=== PATIENT | male | born 1955 | race Caucasian/White ===

== ENCOUNTER 2020-10-21 13:23 | Inpatient (IN) | payer OTHER ==
[~2020-10-21] VITALS: Ht 193 cm; Wt 95.0 kg
[2020-10-21] MEDS ORDERED: normal saline 1000ML IV soln IVB ONE (13:55)
[2020-10-21 13:59] LABS: BASOPHILS % (AUTO) 0.2 % (0-1); EOSINOPHILS % (AUTO) 0.1 % (0-6); LYMPHOCYTES # (AUTO) 1.2 X10'3 (1.1-4.8); LYMPHOCYTES % (AUTO) 6.8 % (21-51); MEAN PLATELET VOLUME 9.8 FL (7.4-10.4); MONOCYTES # (AUTO) 0.4 X10'3 (0-0.9); MONOCYTES % (AUTO) 2.4 % (2-12); NEUTROPHILS # (AUTO) 15.5 X10'3 (1.8-7.7); NEUTROPHILS % (AUTO) 90.5 % (42-75); PLATELET COUNT 402 X10'3 (140-440); RED BLOOD COUNT 4.05 X10'6 (4.70-6.10); RED CELL DISTRIBUTION WIDTH 14.9 % (11.5-14.5); WHITE BLOOD COUNT 17.1 X10'3 (4.5-11.0)
[2020-10-21 14:14] LABS: ALANINE AMINOTRANSFERASE 24 U/L (12-78); ALBUMIN 3.9 G/DL (3.4-5.0); ALKALINE PHOSPHATASE 176 IU/L (46-116); ANION GAP 33 (8-16); ASPARTATE AMINO TRANSFERASE 9 U/L (10-37); BILIRUBIN,TOTAL 0.6 MG/DL (0.1-1.0); BLOOD UREA NITROGEN 44 MG/DL (7-18); BUN/CREATININE RATIO 16.7 (5.4-32.0); CALCIUM 9.7 MG/DL (8.5-10.1); CHLORIDE 96 MMOL/L (99-107); CREATININE 2.63 MG/DL (0.60-1.10); MAGNESIUM 2.6 MG/DL (1.5-2.4); SODIUM 138 MMOL/L (135-145); TOTAL PROTEIN 7.9 G/DL (6.4-8.2); eGFR 25 ML/MIN
[2020-10-21 14:18] LABS: HEMATOCRIT 37.8 % (42.0-52.0)
[2020-10-21 14:19] LABS: MEAN CORPUSCULAR VOLUME 94.5 FL (78-98)
[2020-10-21 14:20] LABS: MEAN CORPUSCULAR HEMOGLOBIN 32.7 PG (27.0-31.0); MEAN CORPUSCULAR HGB CONC 34.6 g/dL (33.0-36.5)
[2020-10-21] MEDS ORDERED: insulin regular, human 10 units/0.1 ml syringe IV ONE (14:20)
[2020-10-21] MEDS ORDERED: ondansetron/PF 4mg/2ml inj IV ONE (14:20)
[2020-10-21 14:21] LABS: HEMOGLOBIN 13.1 g/dl (14.0-17.9)
[2020-10-21 14:35] LABS: TOTAL CARBON DIOXIDE 8.6 MMOL/L (24-32)
[2020-10-21 14:36] LABS: ABG BASE EXCESS -23.6 mmol/L (-2.0-2.0); ABG HCO3 4.5 mmol/L (22.0-26.0); ABG OXYGEN SATURATION 97.3 % (94-97); ABG PCO2 (T) 15.5 mmHg (35.0-48.0); ALLEN'S TEST POSITIVE; FMetHb 0.1 % (0.0-1.5); FO2Hb 97.2 % (94-97); TOTAL HEMOGLOBIN 12.3 G/dl (14.0-18.0)
[2020-10-21] MEDS ORDERED: insulin regular, human U-100 3ml vial - multi-dose IV ONE (14:40)
[2020-10-21] MEDS ORDERED: Insulin Reg/NS 100units/100mL 100 ML IV SCH ×2 (14:45→15:25)
[2020-10-21 14:53] LABS: PHOSPHORUS 9.7 MG/DL (2.3-4.5)
[2020-10-21 14:55] LABS: GLUCOSE 846 MG/DL (70-104)
[2020-10-21] MEDS: normal saline 1000ml 1,000 ML IV SCH ×5 (15:04→22:45)
[2020-10-21] MEDS ORDERED: ASPI-611 PO (15:05)
[2020-10-21] MEDS ORDERED: METF-436 PO (15:05)
[2020-10-21] MEDS ORDERED: ZANTAC PO (15:24)
[2020-10-21] MEDS ORDERED: LEVO125T PO (15:24)
[2020-10-21] MEDS ORDERED: normal saline 1000ml 1,000 ML IV SCH (15:25)
[2020-10-21] MEDS ORDERED: insulin regular, human U-100 3ml vial - multi-dose IV PRN (15:25)
[2020-10-21] MEDS ORDERED: potassium CL 20mEq in D5-1/2NS 1,000 ML IV PRN (15:25)
[2020-10-21] MEDS ORDERED: acetaminophen 325mg tablet PO PRN ×2 (15:25)
[2020-10-21] MEDS ORDERED: potassium Cl 40MEQ/1/2NS 520ml 520 ML IV PRN ×2 (15:25)
[2020-10-21] MEDS ORDERED: potassium Cl 20 mEq SR tablet PO PRN ×2 (15:25)
[2020-10-21] MEDS ORDERED: Neutra Phos packet PO PRN (15:25)
[2020-10-21] MEDS ORDERED: sodium bicarbonate (8.4%) inj. 100 MEQ in dextrose 5% water 500ml 500 ML IV PRN (15:25)
[2020-10-21] MEDS ORDERED: mag hydrox/Alum hydrox/simeth 30ml oral suspension PO PRN (15:25)
[2020-10-21] MEDS ORDERED: sodium phosphate inj. 30 MMOL in dextrose 5%-water 250 ML IV PRN (15:25)
[2020-10-21] MEDS ORDERED: sodium bicarbonate (8.4%) inj. 50 MEQ in dextrose 5% water 500ml 250 ML IV PRN (15:25)
[2020-10-21] MEDS ORDERED: ondansetron/PF 4mg/2ml inj IV PRN (15:25)
[2020-10-21] MEDS ORDERED: HYDROcodone/acetaminophen 5mg/325mg tablet PO PRN (15:25)
[2020-10-21] MEDS ORDERED: morphine 2 MG/ML inj. syringe IV PRN ×2 (15:25)
[2020-10-21] MEDS ORDERED: sodium phosphate inj. 15 MMOL in dextrose 5%-water 250 ML IV PRN (15:25)
[2020-10-21] MEDS ORDERED: magnesium hydroxide 30ml (MOM) UD suspension PO PRN (15:25)
[2020-10-21] MEDS ORDERED: HYDROcodone/acetaminophen 10/325mg tab PO PRN (15:25)
[2020-10-21] MEDS ORDERED: VENL150C2 PO (15:57)
[2020-10-21] MEDS ORDERED: DIVA500T9 PO (15:57)
[2020-10-21] MEDS ORDERED: PANT-47 PO (15:57)
[2020-10-21] MEDS ORDERED: SIMV40TA PO (15:57)
[2020-10-21] MEDS ORDERED: MULT-1085 PO (15:57)
[2020-10-21] MEDS ORDERED: LEVO50TA PO (15:58)
--- NOTE | 2020-10-21 16:00 | NUR ---
bg >600 meter reads hi
[2020-10-21 16:17] LABS: ALBUMIN 3.7 G/DL (3.4-5.0); ANION GAP 35 (8-16); BLOOD UREA NITROGEN 40 MG/DL (7-18); BUN/CREATININE RATIO 15.7 (5.4-32.0); CALCIUM 9.2 MG/DL (8.5-10.1); CHLORIDE 97 MMOL/L (99-107); CREATININE 2.54 MG/DL (0.60-1.10); SODIUM 140 MMOL/L (135-145); eGFR 26 ML/MIN
[2020-10-21 16:19] LABS: CLARITY,URINE CLEAR (Clear); COLOR,URINE YELLOW (Yellow); GLUCOSE, URINE >=1000 mg/dl (Neg); KETONES,URINE >=80 mg/dl (Neg); LEUKOCYTE ESTERASE ,URINE NEGATIVE (Neg); NITRITES, URINE NEGATIVE (Neg); OCCULT BLOOD,URINE TRACE-INTACT (Neg); PH,URINE 5.5 (4.8-8.0); PROTEIN,URINE TRACE mg/dl (Neg); UROBILINOGEN,URINE 0.2 E.U/dL (0.2-1.0)
[2020-10-21 16:20] LABS: UA COLLECTION TYPE URINAL
[2020-10-21 16:23] LABS: GLUCOSE 744 MG/DL (70-104); POTASSIUM 6.4 MMOL/L (3.5-5.1); TOTAL CARBON DIOXIDE 8.1 MMOL/L (24-32)
[2020-10-21 16:40] LABS: BACTERIA,URINE NONE SEEN /HPF (Neg); HYALINE CASTS 0-3 /LPF (NEGATIVE); RBC,URINE 0-2 /HPF (0-2); SQUAMOUS EPITHELIAL CELL,UR FEW /LPF (FEW); WBC,URINE 0-4 /HPF (0-4)
[2020-10-21 17:54] LABS: ALBUMIN 3.3 G/DL (3.4-5.0); ANION GAP 30 (8-16); BLOOD UREA NITROGEN 38 MG/DL (7-18); BUN/CREATININE RATIO 16.4 (5.4-32.0); CALCIUM 8.4 MG/DL (8.5-10.1); CHLORIDE 107 MMOL/L (99-107); CREATININE 2.32 MG/DL (0.60-1.10); POTASSIUM 4.9 MMOL/L (3.5-5.1); SODIUM 144 MMOL/L (135-145); eGFR 28 ML/MIN
[2020-10-21 17:59] LABS: GLUCOSE 558 MG/DL (70-104); TOTAL CARBON DIOXIDE 7.4 MMOL/L (24-32)
[2020-10-21 18:00] VITALS: BP 133/60
--- NOTE | 2020-10-21 18:04 | NUR ---
Pt arrived from ER/Critical lab. Critical high blood glucose at 558; CO2 at 8.1. Dr. Sahni paged "RE: Yifan Mckoy: RM 3024A. Critical lab: blood glucose 558 (down from 744); CO2 7.4 (down from 8.1) . (DKA) please advise. -Marleen #[id number]" Pt arrived from ER via gurney at 1745, accompanied from Gustavo ZARATE. Full report received from Gustavo. Pt has received total of 4L IV fluids, and has 250ml running. Pt alert and oriented, denies pain. Pt 3 person transferred to hospital bed. Blood sugar checked and is 511. pt set up in the bed, call light in hand, IVs patent and running insulin at 7Units/hr; NS at 250ml/hr. pt denies nausea. redraw of potassium now 4.9 (down from 6.4). safety education completed. pt NPO. pt on tele: sinus tachycardia. VS: 97.9;112; 14; 145/67; 100%. report to be given to oncoming nurse.
--- NOTE | 2020-10-21 18:26 | NUR ---
Problems reprioritized. Patient report given, questions answered & plan of care reviewed with Lissette ZARATE. Pt supine in bed with HOB elevated to 20 degrees. pt A&Ox4, conversing easily. no sob. IV running 205ml ns/hr and 7 units of insulin/hour.
--- NOTE | 2020-10-21 18:28 | NUR ---
[place] documentation: I have reviewed and agree with all interventions, assessments performed and documented by ELLIOT Hawley.
--- NOTE | 2020-10-21 18:28 | NUR ---
Problems reprioritized. Patient report given, questions answered & plan of care reviewed with ELLIOT Chandra. Pt laying in bed comfortably at change of shift, no signs of distress, all pt needs met at this time.
--- NOTE | 2020-10-21 18:28 | NUR ---
[place] Medication Administration: For this medication-pass time frame, all medication were reviewed, dispensed, administered and documented per hospital policy by ELLIOT Hawley.
[2020-10-21 20:00] VITALS: BP_SYST 107; BP_SYST 119; BP_SYST 131; BP_DIAS 51; BP_DIAS 55; BP_DIAS 68
[2020-10-21] MEDS: K and/or MAG REPLACEMENT MC SCH (20:00)
[2020-10-21 22:00] VITALS: BP 131/68
[2020-10-21 22:13] LABS: CHLORIDE 109 MMOL/L (99-107); GLUCOSE 410 MG/DL (70-104); POTASSIUM 5.2 MMOL/L (3.5-5.1); SODIUM 144 MMOL/L (135-145)
[2020-10-21 22:14] LABS: ALBUMIN 3.4 G/DL (3.4-5.0); ANION GAP 23 (8-16); BLOOD UREA NITROGEN 36 MG/DL (7-18); BUN/CREATININE RATIO 16.4 (5.4-32.0); CREATININE 2.19 MG/DL (0.60-1.10); PHOSPHORUS 4.4 MG/DL (2.3-4.5); eGFR 30 ML/MIN
[2020-10-21 22:16] LABS: TOTAL CARBON DIOXIDE 12.4 MMOL/L (24-32)
--- NOTE | 2020-10-21 22:32 | NUR ---
PAGER ID: [phone] MESSAGE: [id number] Yifan Mcoky: 6 hr trop 0.52, 12 hr trop already ordered. patient has MS and had a seizure 2 days ago at home, DKA slowly resolving. would you like to order anything else? Corazon ZARATE [id number]
[2020-10-21] MEDS: dextrose 5%-1/2 normal saline 1,000 ML IV SCH (23:27)
[2020-10-22] VITALS (13 sets, daily range): BP systolic 114–132; BP diastolic 46–76
[2020-10-22 00:16] LABS: ALBUMIN 3.1 G/DL (3.4-5.0); ANION GAP 17 (8-16); BLOOD UREA NITROGEN 31 MG/DL (7-18); CALCIUM 8.5 MG/DL (8.5-10.1); CHLORIDE 112 MMOL/L (99-107); CREATININE 1.94 MG/DL (0.60-1.10); GLUCOSE 233 MG/DL (70-104); PHOSPHORUS 2.8 MG/DL (2.3-4.5); POTASSIUM 4.8 MMOL/L (3.5-5.1); SODIUM 146 MMOL/L (135-145); TOTAL CARBON DIOXIDE 16.7 MMOL/L (24-32); eGFR 35 ML/MIN
--- NOTE | 2020-10-22 01:15 | NUR ---
Insulin Drip PAGER ID: [phone] MESSAGE: [id number] Yifan Mckoy: DKA patient, currently 196 blood glucose and steadily going down. Patient has insulin going at 7 ml/hour, protocol states it should be at 5ml/hr. would you like me to decrease? Corazon ZARATE 5164
[2020-10-22] MEDS: Insulin Reg/NS 100units/100mL 100 ML IV SCH ×2 (01:41→18:08)
[2020-10-22 02:52] LABS: BASOPHILS % (AUTO) 0.2 % (0-1); EOSINOPHILS % (AUTO) 0.2 % (0-6); HEMATOCRIT 29.4 % (42.0-52.0); HEMOGLOBIN 9.9 g/dl (14.0-17.9); LYMPHOCYTES # (AUTO) 2.5 X10'3 (1.1-4.8); MEAN CORPUSCULAR HEMOGLOBIN 31.9 PG (27.0-31.0); MEAN CORPUSCULAR HGB CONC 33.7 g/dL (33.0-36.5); MEAN CORPUSCULAR VOLUME 94.7 FL (78-98); MEAN PLATELET VOLUME 8.6 FL (7.4-10.4); MONOCYTES # (AUTO) 1.1 X10'3 (0-0.9); MONOCYTES % (AUTO) 8.6 % (2-12); NEUTROPHILS # (AUTO) 8.8 X10'3 (1.8-7.7); PLATELET COUNT 241 X10'3 (140-440); RED CELL DISTRIBUTION WIDTH 13.3 % (11.5-14.5); WHITE BLOOD COUNT 12.4 X10'3 (4.5-11.0)
[2020-10-22 03:00] LABS: ALANINE AMINOTRANSFERASE 21 U/L (12-78); ALBUMIN 2.7 G/DL (3.4-5.0); ALBUMIN/GLOBULIN RATIO 0.9 (1.1-1.5); ALKALINE PHOSPHATASE 108 IU/L (46-116); ANION GAP 12 (8-16); ASPARTATE AMINO TRANSFERASE 20 U/L (10-37); BILIRUBIN,TOTAL 0.2 MG/DL (0.1-1.0); BLOOD UREA NITROGEN 27 MG/DL (7-18); BUN/CREATININE RATIO 14.6 (5.4-32.0); CALCIUM 7.8 MG/DL (8.5-10.1); CHLORIDE 113 MMOL/L (99-107); CREATININE 1.85 MG/DL (0.60-1.10); GLUCOSE 218 MG/DL (70-104); POTASSIUM 3.9 MMOL/L (3.5-5.1); SODIUM 146 MMOL/L (135-145); TOTAL CARBON DIOXIDE 20.9 MMOL/L (24-32); TOTAL PROTEIN 5.6 G/DL (6.4-8.2); eGFR 37 ML/MIN
--- NOTE | 2020-10-22 03:08 | NUR ---
Critical Trop 2.43 PAGER ID: [phone] MESSAGE: [id number] Yifan Mckoy: Critical Troponin 12 hour 2.43. Patient is not symptomatic. Has been having dull pressure on sternum since ER, not wanting pain medication. Would you like to order anything? Corazon ZARATE 2228
[2020-10-22] MEDS ORDERED: heparin 10,000 units/1 ML INJ IV ONE (03:15)
[2020-10-22] MEDS ORDERED: heparin 25,000 UNIT/250ml bag 250 ML IV SCH (03:15)
[2020-10-22] MEDS ORDERED: heparin 10,000 units/1 ML INJ IV PRN (03:15)
[2020-10-22 04:00] LABS: PARTIAL THROMBOPLASTIN TIME 25 SECONDS (22-32)
--- NOTE | 2020-10-22 06:16 | NUR ---
Patient in room PCU 3024. I have received report from Lissette ZARATE and had the opportunity to ask questions and assume patient care. pt supine to the left, hob at 20 degrees. chest rising and falling evenly. dextrose 1/2 NS at 200ml/hr, heparin at 1000U/hr and insulin running at 5 U/hr. no s/sx acute distress noted. BLL, CL within reach, SRx2.
--- NOTE | 2020-10-22 06:31 | NUR ---
Problems reprioritized. Patient report given, questions answered & plan of care reviewed with Radha ZARATE.
--- NOTE | 2020-10-22 06:31 | NUR ---
Patient in room U 3024. I have received report from Shoshana ZARATE and had the opportunity to ask questions and assume patient care. Addendum: 10/22/20 at 0632 by Corazon Irby RN at start of shift 10/21/20 1800
--- NOTE | 2020-10-22 07:20 | NUR ---
Paged Kaitlyn: "RE: EanYifan: 1748R. Blood glucose 134. D5%1/2NS up to 250ml/hr. insulin at 5 units/hour. I would like to turn insulin down. pt still NPO. Please advise. -Marleen #[id number]"
--- NOTE | 2020-10-22 07:31 | NUR ---
Paged Rusu: r/t chest pain "RE: Yifan Vega RM 3252B: pt reporting 2/10 medial sternal sharp pain. Trop: 2.43 at 0300. EKG done at 0315. no other symptoms with chest pain. pt decline pain med. -Marleen #[id number]"
--- NOTE | 2020-10-22 07:34 | NUR ---
Dr. Sahni Call Dr. Sahni called back related to pages for chest pain and blood sugars. New orders for SL nitro for chest pain. Dr. sahni indicate to keep pt NPO at this time, and to keep insulin drip at 5units/hour at this time.
[2020-10-22] MEDS ORDERED: nitroGLYCERIN 0.4mg SUBLingual tab SL PRN (07:40)
[2020-10-22 07:41] LABS: ALANINE AMINOTRANSFERASE 18 U/L (12-78); ALBUMIN 2.8 G/DL (3.4-5.0); ALBUMIN/GLOBULIN RATIO 0.9 (1.1-1.5); ALKALINE PHOSPHATASE 109 IU/L (46-116); ANION GAP 11 (8-16); ASPARTATE AMINO TRANSFERASE 16 U/L (10-37); BILIRUBIN,TOTAL 0.2 MG/DL (0.1-1.0); BLOOD UREA NITROGEN 24 MG/DL (7-18); BUN/CREATININE RATIO 14.4 (5.4-32.0); CALCIUM 8.3 MG/DL (8.5-10.1); CHLORIDE 116 MMOL/L (99-107); CREATININE 1.67 MG/DL (0.60-1.10); GLUCOSE 144 MG/DL (70-104); POTASSIUM 3.8 MMOL/L (3.5-5.1); SODIUM 149 MMOL/L (135-145); TOTAL CARBON DIOXIDE 22.5 MMOL/L (24-32); eGFR 42 ML/MIN
--- NOTE | 2020-10-22 07:55 | NUR ---
Nitro PRN first dose nitro 0.4 SL administered at 0746, with effectiveness. sharp medial sternal chest pain relieved to a 1/10 dull pain, no crushing no sob. pt declined additional dose. VS stable. tolerated nitro well.
[2020-10-22] MEDS: K and/or MAG REPLACEMENT MC SCH ×2 (08:00→19:41)
--- NOTE | 2020-10-22 09:11 | NUR ---
Dr. Sahni Called Dr. Sahni called. wanted to know if patient ok with vending machine coin collector consult. Asked Dr. Sahni again if we can turn down the insulin drip that is currently at 5units/hour; pt's labs corrected at this point and blood sugar at 110. Dr. Sahni said "No i want you to keep it exactly how it is. please go ask the patient if he wants the vending machine coin collector involved or if he wants to go home on med management." consulted with pt. pt agreed with vending machine coin collector consult. Dr. Sahni retrieved from holding phone line and notified of pt ok with vending machine coin collector consult. Dr. Sahni asked again, please may i turn down the insulin, just a bit because the patient's blood glucose is only 110, and i am maxed out on the amount of fluids i can give per protocol at 250ml D5% 1/2NS. Dr Sahni said "No. i want you to keep it just as it is."
[2020-10-22] MEDS: dextrose 5%-1/2 normal saline 1,000 ML IV SCH (09:47)
--- NOTE | 2020-10-22 10:49 | NUR ---
Dr. Sahni to Tele floor Spoke with Dr. Sahni regarding down trending blood sugars, last check at 102, labs corrected, maxed out on fluids. Per Dr. Sanhi "i can not change the drips now because he will go back into DKA. if he goes down to blood sugar 60, then you can call me and i will change the insulin rate. keep everything as it is, he is going for angiogram."
[2020-10-22 11:27] LABS: ALANINE AMINOTRANSFERASE 20 U/L (12-78); ALBUMIN 2.7 G/DL (3.4-5.0); ALBUMIN/GLOBULIN RATIO 0.9 (1.1-1.5); ALKALINE PHOSPHATASE 102 IU/L (46-116); ANION GAP 11 (8-16); ASPARTATE AMINO TRANSFERASE 20 U/L (10-37); BILIRUBIN,TOTAL 0.2 MG/DL (0.1-1.0); BLOOD UREA NITROGEN 22 MG/DL (7-18); BUN/CREATININE RATIO 14.4 (5.4-32.0); CALCIUM 8.1 MG/DL (8.5-10.1); CHLORIDE 114 MMOL/L (99-107); CREATININE 1.53 MG/DL (0.60-1.10); GLUCOSE 109 MG/DL (70-104); POTASSIUM 3.3 MMOL/L (3.5-5.1); SODIUM 148 MMOL/L (135-145); TOTAL CARBON DIOXIDE 23.2 MMOL/L (24-32); TOTAL PROTEIN 5.6 G/DL (6.4-8.2); eGFR 46 ML/MIN
[2020-10-22] MEDS: sodium bicarbonate (8.4%) inj. 75 MEQ in dextrose 5% water 500ml 500 ML IV SCH ×4 (12:06→23:20)
[2020-10-22] MEDS ORDERED: nitroGLYCERIN-Tridil 50MG/D5W 250 ML IV ONE (12:30)
[2020-10-22] MEDS ORDERED: midazolam 1 mg/ML 2ml injection ONE (12:30)
[2020-10-22] MEDS ORDERED: verapamil 2.5 mg/ml inj IV ONE (12:30)
[2020-10-22] MEDS ORDERED: heparin 1,000unit/ml 10ml vial 10 ML ONE (12:30)
[2020-10-22] MEDS ORDERED: fentaNYL/PF 50MCG/1 ML 2ML syringe ONE (12:30)
[2020-10-22] MEDS ORDERED: iohexol 350 MG/ML 50ML vial IV ONE (12:30)
[2020-10-22] MEDS ORDERED: LIDOcaine 1% (10mg/ml)w/preservative injection 20ml MDV ONE (12:30)
[2020-10-22] MEDS ORDERED: iohexol 350MG/ML 100ml bottle IV ONE ×2 (12:31→14:26)
[2020-10-22] MEDS ORDERED: LEVO75TA7 PO (13:37)
--- NOTE | 2020-10-22 14:28 | NUR ---
Initial: Pt traveling and ran out of insulin, presented to hospital with increased blood sugars; admit with DKA per EMR. No A1c at this time, recommend obtaining A1c to assess need for DM education. Pt currently NPO. Last BM 10/19. Will continue to monitor if DM education needed. Recs: 1) Advance to carb controlled diet once medically indicated 2) A1c lab draw 3) Routine bowel care 4) Scaled wt this admit Addendum: 10/22/20 at [address] Amended: Links added. Addendum: 10/22/20 at [address] I have reviewed and agree with note by Earring Maker. Kimberly Oakley RD
--- NOTE | 2020-10-22 14:45 | NUR ---
1400 blood glucose check pt in computer lab assistant for angio. not available on tele floor to check sugar.
[2020-10-22] MEDS ORDERED: ticagrelor 90mg tablet ONE ×2 (14:54→15:00)
--- NOTE | 2020-10-22 15:04 | NUR ---
1500 blood glucose check pt in laboratory geneticist for angio. not available on tele floor to check sugar.
--- NOTE | 2020-10-22 15:50 | NUR ---
Back from Manuscripts Curator Pt returned from angiogram, alert, follows commands. VS stable. right radial vasc band at 15ml. no s/sx bleeding. heparin at 1000u/hr running. insulin at 5units/hr, bicarb continuing, D5% 1/2 NS at 250ml. Blood sugar checked: 116. Paged Dr. Sahni to notify.
[2020-10-22] MEDS ORDERED: proCHLORperazine 10 MG/2 ml inj IV PRN (16:15)
[2020-10-22] MEDS ORDERED: magnesium hydroxide 30ml (MOM) UD suspension PO PRN (16:15)
[2020-10-22] MEDS ORDERED: OXAZEpam 15mg capsule PO PRN (16:15)
[2020-10-22] MEDS ORDERED: acetaminophen 325mg tablet PO PRN ×2 (16:15)
[2020-10-22] MEDS ORDERED: cyclobenzaprine 10mg tablet PO PRN (16:15)
[2020-10-22] MEDS ORDERED: HYDROcodone/acetaminophen 10/325mg tab PO PRN ×2 (16:15)
[2020-10-22 16:49] LABS: ALANINE AMINOTRANSFERASE 16 U/L (12-78); ALBUMIN 2.5 G/DL (3.4-5.0); ALBUMIN/GLOBULIN RATIO 0.9 (1.1-1.5); ALKALINE PHOSPHATASE 92 IU/L (46-116); ANION GAP 10 (8-16); ASPARTATE AMINO TRANSFERASE 19 U/L (10-37); BILIRUBIN,TOTAL 0.2 MG/DL (0.1-1.0); BLOOD UREA NITROGEN 19 MG/DL (7-18); BUN/CREATININE RATIO 13.3 (5.4-32.0); CALCIUM 8.3 MG/DL (8.5-10.1); CHLORIDE 114 MMOL/L (99-107); CREATININE 1.43 MG/DL (0.60-1.10); GLUCOSE 130 MG/DL (70-104); POTASSIUM 3.9 MMOL/L (3.5-5.1); SODIUM 146 MMOL/L (135-145); TOTAL CARBON DIOXIDE 22.2 MMOL/L (24-32); TOTAL PROTEIN 5.4 G/DL (6.4-8.2); eGFR 50 ML/MIN
--- NOTE | 2020-10-22 17:31 | NUR ---
Orders for EKG tomorrow AM and EKG as needed with chest pain put in per Dr. Marshall.
--- NOTE | 2020-10-22 18:15 | NUR ---
[place] documentation: I have reviewed and agree with all interventions, assessments performed and documented by ELLIOT Hawley.
--- NOTE | 2020-10-22 18:15 | NUR ---
[place] Medication Administration: For this medication-pass time frame, all medication were reviewed, dispensed, administered and documented per hospital policy by ELLIOT Hawley.
--- NOTE | 2020-10-22 18:16 | NUR ---
Problems reprioritized. Patient report given, questions answered & plan of care reviewed with ELLIOT Chandra. Patient stable at transfer of care.
--- NOTE | 2020-10-22 18:23 | NUR ---
Patient in room PCU 3024. I have received report from Radha ZARATE and had the opportunity to ask questions and assume patient care.
[2020-10-22] MEDS ORDERED: insulin glargine (Lantus) pen - multi-dose SQ ONE (18:30)
[2020-10-22] MEDS: acetylcysteine 200 MG/ml 4ml vial PO SCH (19:26)
[2020-10-22] MEDS: docusate sod 100mg capsule PO SCH (19:26)
[2020-10-22] MEDS: metoprolol tartrate 25mg tablet PO SCH (19:26)
[2020-10-22 20:36] LABS: ALANINE AMINOTRANSFERASE 17 U/L (12-78); ALBUMIN 2.4 G/DL (3.4-5.0); ALBUMIN/GLOBULIN RATIO 0.8 (1.1-1.5); ALKALINE PHOSPHATASE 95 IU/L (46-116); ANION GAP 12 (8-16); ASPARTATE AMINO TRANSFERASE 17 U/L (10-37); BILIRUBIN,TOTAL 0.2 MG/DL (0.1-1.0); BLOOD UREA NITROGEN 16 MG/DL (7-18); BUN/CREATININE RATIO 10.5 (5.4-32.0); CALCIUM 8.2 MG/DL (8.5-10.1); CHLORIDE 112 MMOL/L (99-107); CREATININE 1.52 MG/DL (0.60-1.10); GLUCOSE 168 MG/DL (70-104); PHOSPHORUS 1.6 MG/DL (2.3-4.5); POTASSIUM 3.8 MMOL/L (3.5-5.1); SODIUM 146 MMOL/L (135-145); TOTAL CARBON DIOXIDE 21.9 MMOL/L (24-32); TOTAL PROTEIN 5.3 G/DL (6.4-8.2); eGFR 46 ML/MIN
[2020-10-22] MEDS ORDERED: atorvastatin 20mg tablet PO SCH (21:00)
[2020-10-23 02:00] VITALS: BP 129/50
[2020-10-23] MEDS ORDERED: dextrose ORAL solution 15 GM/59 ML bottle PO PRN ×2 (02:00)
[2020-10-23] MEDS ORDERED: dextrose 50%-water 50ml dispensing syringe IV PRN ×2 (02:00)
[2020-10-23] MEDS: insulin Lispro (HumaLOG) vial - multi-dose SQ SCH ×4 (02:18→11:21)
[2020-10-23 06:00] VITALS: BP 136/61
--- NOTE | 2020-10-23 06:15 | NUR ---
Patient in room PCU 3024. I have received report from Corazon ZARATE and had the opportunity to ask questions and assume patient care.
--- NOTE | 2020-10-23 06:22 | NUR ---
Problems reprioritized. Patient report given, questions answered & plan of care reviewed with Ricky ZARATE.
[2020-10-23] MEDS: metoprolol tartrate 25mg tablet PO SCH (07:19)
[2020-10-23] MEDS: docusate sod 100mg capsule PO SCH (07:19)
[2020-10-23] MEDS: acetylcysteine 200 MG/ml 4ml vial PO SCH (07:21)
[2020-10-23 07:45] LABS: HEMATOCRIT 36.9 % (42.0-52.0); HEMOGLOBIN 12.5 g/dl (14.0-17.9); MEAN CORPUSCULAR HEMOGLOBIN 31.7 PG (27.0-31.0); MEAN CORPUSCULAR HGB CONC 33.8 g/dL (33.0-36.5); MEAN CORPUSCULAR VOLUME 93.8 FL (78-98); MEAN PLATELET VOLUME 9.1 FL (7.4-10.4); PLATELET COUNT 287 X10'3 (140-440); RED BLOOD COUNT 3.93 X10'6 (4.70-6.10); RED CELL DISTRIBUTION WIDTH 13.2 % (11.5-14.5); WHITE BLOOD COUNT 12.9 X10'3 (4.5-11.0)
[2020-10-23] MEDS ORDERED: aspirin 81mg tablet.DR PO SCH (08:00)
[2020-10-23] MEDS ORDERED: ticagrelor 90mg tablet PO SCH (08:00)
[2020-10-23] MEDS: K and/or MAG REPLACEMENT MC SCH (08:00)
[2020-10-23] MEDS ORDERED: losartan 25mg tablet PO SCH (08:00)
[2020-10-23 08:23] LABS: ALBUMIN 2.7 G/DL (3.4-5.0); ANION GAP 16 (8-16); BLOOD UREA NITROGEN 12 MG/DL (7-18); BUN/CREATININE RATIO 7.8 (5.4-32.0); CALCIUM 8.7 MG/DL (8.5-10.1); CHLORIDE 105 MMOL/L (99-107); CHOL/HDL RATIO 3.9 (0.00-4.99); CHOLESTEROL 167 MG/DL (0-200); CREATININE 1.54 MG/DL (0.60-1.10); GLUCOSE 362 MG/DL (70-104); HDL CHOLESTEROL 43 MG/DL (35-60); LDL CHOLESTEROL 99 MG/DL (50-100); PLATELET ESTIMATE NORMAL; POTASSIUM 3.6 MMOL/L (3.5-5.1); SODIUM 142 MMOL/L (135-145); TOTAL CARBON DIOXIDE 20.8 MMOL/L (24-32); TOTAL CELLS COUNTED 100; TRIGLYCERIDES 162 MG/DL (20-135); eGFR 46 ML/MIN
--- NOTE | 2020-10-23 09:50 | NUR ---
Pt ambulated 300 ft with no assistive devices on room air. Pt tolerated well with no SOB or complaints of chest pain or generalized pain.
[2020-10-23] MEDS ORDERED: LOSA25TA41 PO (10:07)
[2020-10-23] MEDS ORDERED: TICA90TA PO (10:07)
[2020-10-23] MEDS ORDERED: INSU100V12 SQ (10:07)
[2020-10-23] MEDS ORDERED: ATOR20TA66 PO (10:07)
[2020-10-23] MEDS ORDERED: LOP25T PO (10:07)
[2020-10-23 11:00] VITALS: BP 125/60
--- NOTE | 2020-10-23 11:25 | NUR ---
Pt DC'd home with friend. IV's removed with canulas intact. Tele-box removed and returned to tele-tech. Pt alert and oriented and vitals WNL upon DC. Per Dr. Sahni and Dr. Marshall; pt is stable for DC. DC paperwork printed out and gone over with Pt. Allowed Pt to ask questions concerning DC and then answered them. Scripts for new prescriptions given to Pt to be filled at pharmacy of Pt's choice. Pt stated that he will make follow up appt with PCP at [facility] when he returns home in two days time. Pt's belongings gathered and sent with Pt. Pt wheeled down to lobby via wheelchair. Pt left in private vehicle with friend foe home.
== END 2020-10-23 11:41 | disposition home or self-care (01) | DRG 246 ==
LOC: ER 13:24 → ED HOLD 15:23 → PCU 3S 17:44
PROVIDERS: ADMIT Internal Medicine; ATTEND Internal Medicine
PROC: 027034Z Dilation of Coronary Artery, One Artery with Drug-eluting Intraluminal Device, Percutaneous Approach (ICD-10-PCS; principal; 2020-10-23)
PROC: 02703ZZ Dilation of Coronary Artery, One Artery, Percutaneous Approach (ICD-10-PCS; 2020-10-23)
PROC: B2151ZZ Fluoroscopy of Left Heart using Low Osmolar Contrast (ICD-10-PCS; 2020-10-23)
PROC: B2111ZZ Fluoroscopy of Multiple Coronary Arteries using Low Osmolar Contrast (ICD-10-PCS; 2020-10-23)
PROC: 4A023N7 Measurement of Cardiac Sampling and Pressure, Left Heart, Percutaneous Approach (ICD-10-PCS; 2020-10-23)
DX: I21.4 Non-ST elevation (NSTEMI) myocardial infarction (principal); E11.10 Type 2 diabetes mellitus with ketoacidosis without coma; N17.9 Acute kidney failure, unspecified; E03.9 Hypothyroidism, unspecified; E86.0 Dehydration; E87.5 Hyperkalemia; F12.90 Cannabis use, unspecified, uncomplicated; G35 Multiple sclerosis; G40.909 Epilepsy, unspecified, not intractable, without status epilepticus; F14.90 Cocaine use, unspecified, uncomplicated; Z79.4 Long term (current) use of insulin; Z79.82 Long term (current) use of aspirin; Z79.899 Other long term (current) drug therapy; Z82.3 Family history of stroke; Z83.3 Family history of diabetes mellitus; Z87.891 Personal history of nicotine dependence; Z90.49 Acquired absence of other specified parts of digestive tract; Z88.0 Allergy status to penicillin
CPT/HCPCS: 93306; 93458; 96365; 96375; 99291; C9600; 36415; 36600; 71045; 76937; 80048; 80053; 80061; 81001; 82803; 82948; 83605; 83735; 83880; 84100; 84145; 84484; 85007; 85018; 85025; 85347; 85610; 85730; 87040; 87081; 93005; 93308; 99152; 99153; A4620; A5120; A6258; C1725; C1751; C1769; C1874; C1894; G0378; J1644; J1815; J2001; J2250; J2405; J3010; J3490; J7030; Q9967